=== PATIENT | male | born 1940 | race Caucasian/White ===

== ENCOUNTER → 2017-05-07 13:39 | Outpatient (CLI) | payer MEDICARE, OTHER, SELFPAY ==
[2017-05-07 14:37] LABS: Amphetamine Urine VISTA NEGATIVE (<1000 ng/mL); Barbiturate Urine VISTA NEGATIVE (< 200 ng/mL); Benzodiazepine Urine VISTA NEGATIVE (< 200 ng/mL); Cocaine Urine VISTA NEGATIVE (< 300 ng/mL); Ecstacy Urine VISTA NEGATIVE (< 500 ng/mL); Methadone Urine VISTA NEGATIVE (< 300 ng/mL); PCP Urine VISTA NEGATIVE (< 25 ng/mL); THC Urine VISTA NEGATIVE (< 50 ng/mL); Vista UDS pH Range 7
== END ==
PROVIDERS: Family Provider Internal Medicine; PCP Internal Medicine; Visit Provider Anesthesiology Pain Medicine
DX: F11.20 Opioid dependence, uncomplicated (principal)
CPT/HCPCS: 80307

== ENCOUNTER → 2017-10-15 15:12 | Outpatient (CLI) | payer MEDICARE, OTHER, SELFPAY ==
[2017-10-15 17:42] LABS: Absolute Lymphocyte Count 1.15 X10^3/ul (0.83-4.51); Absolute Neutrophil Count 3.8 X10^3/uL (2.0-7.7); Basophil# 0.02 X10^3/uL; Basophil% 0.3 % (0-1); Eosinophil# 0.06 X10^3/uL; Hematocrit 38.5 % (40-54); Hemoglobin 12.4 g/dl (13.0-16.5); Lymphocyte # 1.15 X10^3/ul (4.0); Lymphocyte % 20.1 % (19-41); Mean Corp Hgb Conc 32.2 g/gl (32-36); Mean Corpuscular Hgb 29.7 pg (27.0-32.0); Mean Corpuscular Volume 92.3 fL (80-94); Mean Platelet Vol. 9.4 fl (6.2-12.0); Monocyte# 0.67 X10^3/uL; Monocyte% 11.7 % (0-10); Neutrophil # 3.81 X10^3/uL (2.7-7.7); Neutrophil % 66.7 % (47-70); Platelet Count 337 K/mm3 (150-450); RBC Distribution Width CV 15.4 % (11.6-14.6); RBC Distribution Width SD 49.9 fl (35.1-43.9); Red Blood Count 4.17 M/mm3 (4.6-6.2); White Blood Count 5.7 K/mm3 (4.4-11.0)
[2017-10-15 17:49] LABS: ALB/GLOB Ratio 0.9 RATIO (0.9-2.4); AST(SGOT) 14 U/L (15-37); Alanine Aminotransfer ALT/SGPT 24 U/L (16-61); Albumin, Serum 3.8 g/dL (3.2-5.0); Alkaline Phosphatase 99 U/L (45-117); Anion Gap 9 (5-15); BUN 16 mg/dL (7-18); BUN/Creat Ratio 16.8 RATIO (10-20); Calcium,Total 8.8 mg/dL (8.5-10.1); Chloride 97 mmol/L (98-107); Creatinine, Serum 0.95 mg/dL (0.70-1.30); EST Glomerular Filtration Rate 82 mL/min (>60); Est Glom Filt Rate - Afr Amer 99 mL/min (>60); Globulin 4.2 g/dL (2.2-4.2); Glucose 167 mg/dL (74-106); Potassium 4.2 mmol/L (3.5-5.1); Sodium Level 134 mmol/L (136-145); Thyroid Stim Hormone (TSH) 1.92 uIU/mL (0.358-3.74)
[2017-10-15 18:25] LABS: POSITIVE COUNT NO; POSITIVE DIFFERENTIAL NO; POSITIVE MORPHOLOGY NO
[2017-10-16 09:58] LABS: Vitamin D,25 Hydroxy 33.5 ng/mL (29.95-100.01)
== END ==
PROVIDERS: Visit Provider Family Medicine Geriatric Medicine
DX: E11.9 Type 2 diabetes mellitus without complications (principal); E55.9 Vitamin D deficiency, unspecified
CPT/HCPCS: 36415; 80053; 82306; 84443; 85025

== ENCOUNTER → 2017-11-13 13:14 | Outpatient (CLI) | payer MEDICARE, OTHER, SELFPAY ==
--- NOTE | 2017-11-13 13:14 | DT_ITS ---
This patient was seen during an EMR downtime November 09, 2017 - November 16, 2017. This patient may have a combination of paper and electronic documentation or all paper documentation. All documentation is viewable within the e-chart portion of [employer] for each patient visit.
[2017-11-13 15:46] LABS: Anion Gap 9 (5-15); BUN 16 mg/dL (7-18); Calcium,Total 8.1 mg/dL (8.5-10.1); Chloride 104 mmol/L (98-107); Creatinine, Serum 0.84 mg/dL (0.70-1.30); EST Glomerular Filtration Rate 95 mL/min (>60); Est Glom Filt Rate - Afr Amer 115 mL/min (>60); Glucose 155 mg/dL (74-106); Potassium 4.3 mmol/L (3.5-5.1); Sodium Level 137 mmol/L (136-145)
== END ==
PROVIDERS: Family Provider Internal Medicine; PCP Internal Medicine; Visit Provider Family Medicine Geriatric Medicine
DX: I10 Essential (primary) hypertension (principal)
CPT/HCPCS: 36415; 80048

== ENCOUNTER → 2017-12-16 13:43 | Outpatient (CLI) | payer MEDICARE, OTHER, SELFPAY ==
--- NOTE | 2017-12-16 13:45 | RAD_ITS ---
STUDY: X-RAY - RIGHT SHOULDER REASON FOR EXAM: Male, 77 years old. Chronic pain TECHNIQUE: 3 view(s) of the shoulder. COMPARISON: Left shoulder dated June 22, 2013 FINDINGS: There is severe degenerative arthrosis of the glenohumeral articulation. There is degenerative arthrosis of the acromioclavicular joint without inferior osseous spur formation. Normal acromion. Normal humeral head and visualized proximal humerus. The soft tissue structures are unremarkable. Normal visualized pulmonary apex. RAD/Shoulder min 2 Views IMPRESSION: Degenerative changes. Electronically Signed: Emma Austin MD at 14:06 EDT Tel , Service support ,
== END ==
PROVIDERS: Family Provider Internal Medicine; PCP Internal Medicine; Visit Provider Orthopaedic Surgery
DX: M25.511 Pain in right shoulder (principal)
CPT/HCPCS: 73030

== ENCOUNTER 2018-01-14 10:13 | Day surgery (SDC) | payer MEDICARE, OTHER, SELFPAY ==
[2018-01-07 13:30] VITALS: BP 128/68; PULSE 72; RESP 18; TEMP 37.1; O2SAT 97; BMI 49.3
[2018-01-14 10:40] VITALS: BP 127/68; PULSE 68; RESP 16; TEMP 36.1; O2SAT 96; BMI 49.3
[2018-01-14 11:35] LABS: Bedside Glucose 86 mg/dL (70-110)
[2018-01-14] MEDS: Tetracaine 0.5% Ophthalmic Bottle 1 DRP (11:45)
[2018-01-14 12:34] VITALS: BP 127/68; BP 139/54; PULSE 64; RESP 18; TEMP 36.2; O2SAT 98
[2018-01-14 12:40] VITALS: BP 127/68; BP 133/74; PULSE 63; RESP 18; O2SAT 97
--- NOTE | 2018-01-14 12:40 | PCM.DC.CATCL ---
Allergies/Adverse Reactions: Allergies fentanyl Adverse Reaction (Verified 01/14/18 10:33) the patch made him hallucinate morphine Adverse Reaction (Verified 01/07/18 13:55) Other DELIRIUM Medications to take at Discharge atorvastatin 20 mg tablet 20 mg PO DAILY 30 Days #30 12/16/17 duloxetine 60 mg capsule,delayed release 60 mg PO QHS 30 Days #30 12/16/17 furosemide 40 mg tablet 40 mg PO DAILY 30 Days #30 12/16/17 metformin ER 500 mg tablet,extended release 24 hr 500 mg PO TID 30 Days #120 12/16/17 oxycodone ER 20 mg tablet,crush resistant,extended release 12 hr 20 mg PO BID 28 Days #56 12/16/17 repaglinide 2 mg tablet 2 mg PO TID 90 Days #360 12/16/17 sacubitril 97 mg-valsartan 103 mg tablet 1 ea PO BID 30 Days #60 12/16/17 spironolactone 25 mg tablet 25 mg PO DAILY 30 Days #30 12/16/17 Amiodarone HCl [Cordarone] 200 mg PO DAILY 01/07/18 Carvedilol [Coreg] 25 mg PO BID 01/07/18 Insulin Aspart [Novolog Flexpen (BKC)] 3 units SC TIDCM 01/07/18 Insulin Degludec [Tresiba Flextouch U-100] 10 unit SQ DAILY 01/07/18 Levothyroxine [Synthroid] 25 mcg PO DAILY 01/07/18 Linaclotide [Linzess] 72 mcg PO DAILY 01/07/18 Liraglutide [Victoza] 1.8 mg SQ DAILY 01/07/18 Nitroglycerin 0.4 mg SL PRN PRN 01/07/18 Paroxetine HCl [Paxil] 20 mg PO DAILY 01/07/18 Polyethylene Glycol 3350 [Miralax] 17 gm PO DAILY 01/07/18 Rivaroxaban [Xarelto] 20 mg PO DAILY 01/07/18 Tamsulosin HCl [Flomax] 0.4 mg PO DAILY 01/07/18 Cataract Instructions: -Take a pain reliever such as Tylenol, Aspirin or Ibuprofen if needed for eye aching or pain. If this is not enough relief for you pain, call your doctor (or the doctor vertical contour band saw operator), even at night. -You are scheduled for a follow-up appointment at [facility] the day after surgery. You should have someone drive you. -Transient pain and irritation are due to the incision that was made at the time of surgery and do not indicate any trouble. Our office numbers are . If there is no answer, or if it is after our normal business hours, call your surgeon. My home phone number is: Dr. Yoli Molina INSTRUCTIONS FOLLOWING TOPICAL ANESTHETIC CATARACT SURGERY Protect operated eye with glasses or metal shield at all times. Instill one drop of Polytrim (or other antibiotic drop), one drop of Prednisolone and one drop of Acular in the operated eye four times a day (breakfast, lunch, dinner, and bedtime) until the doctor tells you to quit or decrease them. Wait 3-5 minutes between each drop. Please begin these immediately upon arriving at home. if your surgery is in t he afternoon, try to use the drops at least three more times the day of surgery and again the following morning before your appointment. INSTRUCTIONS FOLLOWING RETROBULBAR CATARACT SURGERY Keep the eye patch and metal shield on until you see your surgeon the day after surgery - these will be removed in the office that day. Do not drive while the patch is on your eye. You will be instructed about the use of drops for the operated eye at that visit. Primary Care Physician: Wallace Montes Chi, MD [Primary Care Provider] -
--- NOTE | 2018-01-14 12:40 | PCM.OP.BLANK ---
Operative Report Date of Procedure: 01/14/18 Preoperative Diagnosis: Cataract Right Eye, Postoperative Diagnosis: Same Procedure: Cataract Extraction via phacoemulsification with intraocular lens implant Right Eye, Complex Case-Expansion of Miotic Pupil Anesthesia: Mac/topical Complications: none Estimated Blood Loss: none Indications for procedure: This is a 77 year old male with history of worsening vision in the right eye secondary to cataract. After discussion of the risks, benefits, and alternatives procedure the patient agreed to proceed with cataract extraction of the right eye. Description of procedure: The patient was brought to the operative room where a time out was performed prior to the start of the procedure. Anesthesia team induced light sedation, and the eye was prepped and draped in the normal sterile fashion for eye surgery. A ashley blade knife was used to create a paracentesis incision. Preservative free lidocaine followed by viscoelastic was introduced into the anterior chamber. A keratome was used to create a clear corneal biplanar incision at the temporal limbus. The pupil was noted to be persistently miotic due to flomax use and therefore a malyugian ring was inserted to maintain pupillary dilation and capture the iris. A cystotome was used to begin the capsulorhexis, which was completed in a continuous curvilinear fashion using the capsulorhexis forceps. BSS on a sanford cannula was used to hydrate beneath the lens capsule until the lens was noted to be freely mobile in the capsular bag. Phacoemulsification was used to remove the lens in a divide and conquer technique. Irrigation and aspiration was used to remove the remaining cortical material. The capsular bag was inflated with provisc, and a tecnis PCBOO 21.5 diopter lens was placed in the capsular bag and adjusted using a oniel hook. The oniel hook was used to remove the Malyugian ring from the iris and anterior chamber. The remaining viscoelastic material was removed. The wounds were hydrated and noted to be watertight with the use of a wexcell sponge. The patient was taken to the recovery room in a stable condition with instructions to follow up in the clinic for the scheduled postoperative visit.
[2018-01-14 12:45] VITALS: BP 123/58; BP 127/68; PULSE 63; RESP 18; O2SAT 96
[2018-01-14 12:50] VITALS: BP 126/53; BP 127/68; PULSE 64; RESP 18; TEMP 36.3; O2SAT 97
[2018-01-14 13:29] VITALS: BP 127/68
== END 2018-01-14 13:41 | disposition home or self-care (01) ==
LOC: SDC 10:14 → AC 10:14
PROVIDERS: Family Provider Family Medicine Geriatric Medicine; PCP Family Medicine Geriatric Medicine; Visit Provider Ophthalmology
PROC: (CPT 66982; principal; 2018-01-14 11:35)
DX: H25.811 Combined forms of age-related cataract, right eye (principal); H57.03 Miosis; E11.69 Type 2 diabetes mellitus with other specified complication; I50.22 Chronic systolic (congestive) heart failure; F32.9 Major depressive disorder, single episode, unspecified; E78.5 Hyperlipidemia, unspecified; E03.9 Hypothyroidism, unspecified; I48.0 Paroxysmal atrial fibrillation; G47.00 Insomnia, unspecified
CPT/HCPCS: 00142; 66982; 82962

== ENCOUNTER 2018-01-22 16:33 | Emergency (ER) | payer MEDICARE, OTHER, SELFPAY ==
[2018-01-22 16:34] VITALS: PULSE 67; RESP 18; TEMP 36.7; O2SAT 96; BMI 47.1
[2018-01-22 16:37] VITALS: BP 145/74; PULSE 67; RESP 18; O2SAT 96
[2018-01-22] MEDS: oxyCODONE 5 MG Tablet 10 MG PO (17:09)
[2018-01-22] MEDS: Acetaminophen 500 MG Tablet 1000 MG PO (17:09)
--- NOTE | 2018-01-22 18:38 | ED.DCSUM_ITS ---
- ER Visit Summary Date of Service: 01/22/18 Chief Complaint: Fall History of Present Illness: The patient is a [address] Montes and Dr. Rock. He has a history of frequent falls. He is on Xarelto for atrial fibrillation. 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 States that he was in a very odd position and was unable to get up for approximately 2 hours. He denies any loss of consciousness. He reports she has neck pain 0 10 severity. He has back pain is 3 out of 10 currently and 10 out of 10 at worst. However, he reports that he sees Dr. Rock for chronic back pain. Physical Examination: Vitals: Stable. Afebrile. Neck: Mild diffuse tenderness palpation over his entire C-spine. Full range of motion without any difficulty. Back: Moderate diffuse tenderness palpation over the lumbar spine the paraspinous muscular and lumbar region. Negative straight leg raise bilaterally. General: A&O x 3. NAD. Cardiovascular exam: Regular rate and rhythm, no murmur, rub or gallop. Respiratory exam: Chest nontender. No crepitus. Clear to auscultation bilaterally. No wheezes or stridor. Abdominal exam: Soft, nontender, nondistended, normal bowel sounds. No pain in RUQ or LUQ specifically. No peritoneal signs. Extremity: Atraumatic. No pain with range of motion. Test Results: CT brain shows chronic changes and no intracranial hemorrhage. CT C-spine shows degenerative changes. LS spine x-ray show degenerative changes. Emergency Department Course and Treatment: Patient was treated with oxycodone and Tylenol p.o. He has been able to stand and ambulate in the emerge part without difficulty. Treatment Plan: Patient be discharged instructions continue his home pain regimen as prescribed by Dr. Rock. Follow-up with his primary care physician or Dr. Rock in 3-5 days not improving. Return to the emergency department for any worsening symptoms. Disposition: To home in improved and stable condition. Impression: 1. Mechanical fall. 2. Lumbar strain. 3. Coagulopathy on Xarelto. This note was generated with [employer] software. It may contain incorrect words, spelling, and punctuation that were not noted in review of the chart prior to signing ED Disposition - Plan for ED Patient: Disposition: Home or Assisted Living Chief Complaint: Fall Instructions: ED Mechanical Fall Referrals: Wallace Montes Chi, MD [Primary Care Provider] - 3-5 Days
[2018-01-22] MEDS: oxyCODONE 5 MG Tablet PO (18:51)
== END 2018-01-22 19:03 | disposition home or self-care (01) ==
PROVIDERS: Emergency Provider Emergency Medicine; Family Provider Family Medicine Geriatric Medicine; PCP Family Medicine Geriatric Medicine
DX: S39.012A Strain of muscle, fascia and tendon of lower back, initial encounter (principal); W07.XXXA Fall from chair, initial encounter; Y93.9 Activity, unspecified; Y92.009 Unspecified place in unspecified non-institutional (private) residence as the place of occurrence of the external cause; Y99.9 Unspecified external cause status; I48.91 Unspecified atrial fibrillation; G89.29 Other chronic pain; M54.9 Dorsalgia, unspecified; D68.9 Coagulation defect, unspecified; K59.00 Constipation, unspecified; E11.9 Type 2 diabetes mellitus without complications; I10 Essential (primary) hypertension; I25.10 Atherosclerotic heart disease of native coronary artery without angina pectoris; Z85.51 Personal history of malignant neoplasm of bladder; Z86.718 Personal history of other venous thrombosis and embolism
CPT/HCPCS: 70450; 72100; 72125; 99285

== ENCOUNTER → 2018-02-05 11:52 | Outpatient (CLI) | payer MEDICARE, OTHER, SELFPAY | PROVIDERS: Family Provider Family Medicine Geriatric Medicine; PCP Family Medicine Geriatric Medicine; Visit Provider Family Medicine Geriatric Medicine | DX: N39.0 Urinary tract infection, site not specified (principal) | CPT/HCPCS: 87086; 87088 ==